=== PATIENT | male | born 1995 | race Caucasian/White ===

== ENCOUNTER 2018-05-09 21:59 | Emergency (ER) | payer OTHER, SELFPAY ==
[2018-05-09 22:00] VITALS: BP 131/79; PULSE 92; RESP 16; TEMP 37.6; O2SAT 98; BMI 19.3
--- NOTE | 2018-05-09 22:09 | RAD_ITS ---
STUDY: X-RAY CHEST REASON FOR EXAM: Male, 22 years old. Fell off horse and was dragged. Right lower leg pain TECHNIQUE: Single AP portable view of the chest. COMPARISON: None. FINDINGS: There is a superimposed backboard. There are superimposed monitor leads. There is no demonstrated pneumothorax. The lungs are clear and expanded. There is no demonstrated pleural abnormality. Normal size heart. Normal mediastinum and jonathan. Normal visualized pulmonary arteries. Normal visualized aortic arch and descending thoracic aorta. Normal visualized thoracic spine. Normal visualized ribs, clavicles, and shoulders. There is no demonstrated abnormality of the visualized soft tissue structures of the upper abdomen. RAD/Chest 1 View (Portable) IMPRESSION: Normal x-ray examination of the chest. Electronically Signed: Ana Luisa Potts MD at 0:21 EDT , Service support ,
--- NOTE | 2018-05-09 22:11 | RAD_ITS ---
STUDY: X-RAY - RIGHT TIBIA AND FIBULA REASON FOR EXAM: Male, 22 years old. Fell off horse and was dragged. Right lower leg pain TECHNIQUE: 2 view(s) of the tibia and fibula were obtained. COMPARISON: None. FINDINGS: Acute comminuted displaced fracture of the mid/distal tibia and fibula with lateral angulation and medial/anterior displacement with mild foreshortening, fracture line is oblique. There is posterior soft tissue calcification with lucency likely pockets of air which may indicate open injury. The ankle alignment appears intact. Proximal fibula is intact. The tibial plateau is not included. There is a superimposed board. RAD/Tibia & Fibula 2 Views IMPRESSION: Acute displaced angulated fracture of the tibia and fibula as above. Electronically Signed: Ana Luisa Potts MD at 0:23 EDT , Service support ,
--- NOTE | 2018-05-09 22:11 | RAD_ITS ---
STUDY: X-RAY - PELVIS REASON FOR EXAM: Male, 22 years old. Injury and pain TECHNIQUE: One view of the pelvis was obtained. COMPARISON: None. FINDINGS: There is a non-specific bowel gas pattern. The soft tissues are unremarkable. The visualized iliac wings, sacroiliac joints and sacrum are unremarkable. No abnormalities are seen in the visualized superior and inferior pubic rami. Normal appearing pubic symphysis. The visualized ischial tuberosities are unremarkable. The proximal right femur shows no significant abnormalities. The right acetabulum shows no significant abnormalities. The right hip joint is normal in appearance. The proximal left femur shows no significant abnormalities. The left acetabulum shows no significant abnormalities. The left hip joint is normal in appearance. RAD/Pelvis 1 or 2 Views IMPRESSION: No acute abnormalities are seen in the pelvis. Electronically Signed: Autumn Cam MD at 0:20 EDT Tel Direct: [phone], Service support ,
[2018-05-09] MEDS: 0.9% Normal Saline 1,000 ML 1000 ML IV (22:14)
[2018-05-09] MEDS: HYDROmorphone 1 MG/ML Syringe IV (22:14)
[2018-05-09] MEDS: Diphth,Pertuss(Acell),Tet Vac 0.5 ML Vial IM (22:15)
[2018-05-09] MEDS: Cefazolin 2 GM in 0.9% Normal Saline 100 ML IV (22:16)
[2018-05-09 22:20] LABS: Absolute Neutrophil Count 6.7 X10^3/uL (2.0-7.7); Basophil# 0.02 X10^3/uL; Basophil% 0.2 % (0-1); Eosinophil# 0.09 X10^3/uL; Hematocrit 41.4 % (40-54); Hemoglobin 14.2 g/dl (13.0-16.5); Lymphocyte % 16.4 % (19-41); Mean Corp Hgb Conc 34.3 g/gl (32-36); Mean Corpuscular Hgb 29.1 pg (27.0-32.0); Mean Corpuscular Volume 84.8 fL (80-94); Mean Platelet Vol. 10.3 fl (6.2-12.0); Monocyte# 0.78 X10^3/uL; Monocyte% 8.6 % (0-10); Neutrophil # 6.71 X10^3/uL (2.7-7.7); Neutrophil % 73.6 % (47-70); POSITIVE COUNT NO; POSITIVE DIFFERENTIAL NO; POSITIVE MORPHOLOGY NO; Platelet Count 171 K/mm3 (150-450); RBC Distribution Width CV 12.4 % (11.6-14.6); RBC Distribution Width SD 38.1 fl (35.1-43.9); Red Blood Count 4.88 M/mm3 (4.6-6.2); White Blood Count 9.1 K/mm3 (4.4-11.0)
[2018-05-09 22:22] VITALS: BP 123/68; PULSE 100; RESP 16; O2SAT 98
[2018-05-09 22:30] LABS: International Normalized Ratio 1.1; Prothrombin Time (Protime)PT. 14.1 SECONDS (11.7-14.9)
[2018-05-09 22:31] LABS: Partial Thromboplast Time 22.7 Seconds (24.1-36.2)
[2018-05-09 22:39] LABS: ALB/GLOB Ratio 1.3 RATIO (0.9-2.4); AST(SGOT) 16 U/L (15-37); Alanine Aminotransfer ALT/SGPT 24 U/L (16-61); Albumin, Serum 3.5 g/dL (3.2-5.0); Alkaline Phosphatase 67 U/L (45-117); Anion Gap 7 (5-15); BUN 22 mg/dL (7-18); BUN/Creat Ratio 22.8 RATIO (10-20); Chloride 108 mmol/L (98-107); Creatinine, Serum 0.96 mg/dL (0.70-1.30); EST Glomerular Filtration Rate 105 mL/min (>60); Est Glom Filt Rate - Afr Amer 127 mL/min (>60); Estimated Creatinine Clearance 106.31 ml/min; Globulin 2.6 g/dL (2.2-4.2); Glucose 126 mg/dL (74-106); Lipase 78 U/L (73-393); Potassium 3.3 mmol/L (3.5-5.1); Protein, Total 6.1 g/dL (6.4-8.2); Sodium Level 142 mmol/L (136-145)
--- NOTE | 2018-05-09 23:59 | ED.VISSUMM ---
- ER Visit Summary Date of Service: 05/09/18 Chief Complaint: Trauma History of Present Illness: The patient is a 22 M who presents to the emergency room via EMS. This ominous gentleman was on a horse the got spooked. He was bucked off but his right leg remained in the stirrup and the horse drug him. During which time he sustained a twisting injuries to the right leg. EMS notes open fracture to the tibia as well as blood around his pelvis they could not find a source. They noted initial blood pressure of 96 systolically. He received fentanyl in route to the hospital. No significant medical problems. Father is with him and they do not wish air transportation due to bahai purposes. Physical Examination: Afebrile vital signs are stable Gen: Well-nourished well-developed Head: Normocephalic atraumatic Eyes: Perrl EOMI ENT: TMs clear no rhinorrhea moist mucous membranes Neck: Supple no lymphadenopathy no JVD nontender CVS: Regular rate rhythm no murmurs normal S1-S2 Respiratory: No distress clear to auscultation bilaterally chest nontender Abdomen: Soft nontender nondistended normal bowel sounds no masses no pelvic instability noted or pain with testing Back: Midthoracic abrasions : There is no blood at the ureteral meatus. There is blood around the perineum. At the rectum there appears to be a laceration with extension subcutaneously anteriorly. Extremity: The right leg shows an obvious deformity midshaft tibia fibula. This is open with puncture wound medially. There is unclotted blood in the air splint. The foot is dusky with decreased capillary refill but still with dorsalis pedis pulse. Skin: Normal color no rash Neuro: alert orientated ?3 CN II-XII intact normal strength sensation reflexes gait cerebellar Psych: Normal affect normal mood Test Results: Chest x-ray negative, pelvis negative, x-rays of the tibia and fibula demonstrate comminuted displaced fractures Emergency Department Course and Treatment: The patient received pain medicine, tetanus update, and Ancef. Patient's leg was wrapped with wet sterile dressing and placed in air splint for transfer. In-line traction was applied and the foot color improved as the capillary refill. C-collar was applied. Fast exam was negative. He received 2 L IV fluids bolus. Patient has been accepted to transfer to [facility]. There was no available local transportation squads to take the patient. Given the seriousness of his leg injury and the potential for decompensation with the possible pelvis injury local squad will be transferring him. Impression: 1. Open right tibia fibular fracture 2. Perineal laceration 3. Fall from horse 4. Back abrasions 5. Critical care time 28 minutes This note was generated with [employer] dictation software. It may contain incorrect words, spelling, and punctuation that were not noted in review of the chart prior to signing ED Disposition - Plan for ED Patient: Disposition: [facility] Chief Complaint: Lower Extremity Injury Referrals: Care Physician,No Primary [Primary Care Provider] -
--- NOTE | 2018-05-10 00:04 | ED.DCSUM_ITS ---
- ER Visit Summary Date of Service: 05/09/18 Chief Complaint: Trauma History of Present Illness: The patient is a 22 M who presents to the emergency room via EMS. This ominous gentleman was on a horse the got spooked. He was bucked off but his right leg remained in the stirrup and the horse drug him. During which time he sustained a twisting injuries to the right leg. EMS notes open fracture to the tibia as well as blood around his pelvis they could not find a source. They noted initial blood pressure of 96 systolically. He received fentanyl in route to the hospital. No significant medical problems. Father is with him and they do not wish air transportation due to religion purposes. Physical Examination: Afebrile vital signs are stable Gen: Well-nourished well-developed Head: Normocephalic atraumatic Eyes: Perrl EOMI ENT: TMs clear no rhinorrhea moist mucous membranes Neck: Supple no lymphadenopathy no JVD nontender CVS: Regular rate rhythm no murmurs normal S1-S2 Respiratory: No distress clear to auscultation bilaterally chest nontender Abdomen: Soft nontender nondistended normal bowel sounds no masses no pelvic instability noted or pain with testing Back: Midthoracic abrasions : There is no blood at the ureteral meatus. There is blood around the perineum. At the rectum there appears to be a laceration with extension subcutaneously anteriorly. Extremity: The right leg shows an obvious deformity midshaft tibia fibula. This is open with puncture wound medially. There is unclotted blood in the air splint. The foot is dusky with decreased capillary refill but still with dorsalis pedis pulse. Skin: Normal color no rash Neuro: alert orientated ?3 CN II-XII intact normal strength sensation reflexes gait cerebellar Psych: Normal affect normal mood Test Results: Chest x-ray negative, pelvis negative, x-rays of the tibia and fibula demonstrate comminuted displaced fractures Emergency Department Course and Treatment: The patient received pain medicine, tetanus update, and Ancef. Patient's leg was wrapped with wet sterile dressing and placed in air splint for transfer. In-line traction was applied and the foot color improved as the capillary refill. C-collar was applied. Fast exam was negative. He received 2 L IV fluids bolus. Patient has been accepted to transfer to [facility]. There was no available local transportation squads to take the patient. Given the seriousness of his leg injury and the potential for decompensation with the possible pelvis injury local squad will be transferring him. Impression: 1. Open right tibia fibular fracture 2. Perineal laceration 3. Fall from horse 4. Back abrasions 5. Critical care time 28 minutes This note was generated with [employer] dictation software. It may contain incorrect words, spelling, and punctuation that were not noted in review of the chart prior to signing ED Disposition - Plan for ED Patient: Disposition: [facility] Chief Complaint: Lower Extremity Injury Referrals: Care Physician,No Primary [Primary Care Provider] -
== END 2018-05-09 22:25 | disposition short-term general hospital (02) ==
PROVIDERS: Emergency Provider Emergency Medicine
DX: S82.301B Unspecified fracture of lower end of right tibia, initial encounter for open fracture type I or II (principal); S82.831B Other fracture of upper and lower end of right fibula, initial encounter for open fracture type I or II; S31.5 Open wound of unspecified external genital organs; S20.419A Abrasion of unspecified back wall of thorax, initial encounter; V80.010A Animal-rider injured by fall from or being thrown from horse in noncollision accident, initial encounter; Y93.52 Activity, horseback riding; Y92.9 Unspecified place or not applicable
CPT/HCPCS: 71045; 72170; 73590; 80053; 83690; 85025; 85610; 85730; 90715; 96365; 96375; 99285; J1670; J7030; A4216